=== PATIENT | female | born 1995 | race Caucasian/White ===

== ENCOUNTER 2018-06-18 19:31 | Emergency (ER) | payer OTHER ==
[2018-06-18 20:01] VITALS: BP 127/63
[2018-06-18] MEDS ORDERED: Ibuprofen TAB* 600 MG PO ONE (20:08)
--- NOTE | 2018-06-18 20:17 | UC ---
Throat Pain/Nasal Kwan HPI - HPI Summary HPI Summary: sore throat for 2 days, OGLESBY fever and body aches, petechia and dysphagia - History of Current Complaint Chief Complaint: UCGeneralIllness Stated Complaint: FEVER,ST,BODY ACHES Time Seen by Provider: 06/18/18 20:07 Hx Obtained From: Patient Hx Last Menstrual Period: 06/06/18 Onset/Duration: Sudden Onset, Lasting Days - 2 Severity: Moderate Pain Intensity: 6 Associated Signs & Symptoms: Positive: Dysphagia, Hoarseness, Sinus Discomfort, Fever - Allergies/Home Medications Allergies/Adverse Reactions: Allergies Allergy/AdvReac Type Severity Reaction Status Date / Time No Known Allergies Allergy Verified 06/18/18 20:01 PMH/Surg Hx/FS Hx/Imm Hx Previously Healthy: Yes - Surgical History Surgical History: Yes Surgery Procedure, Year, and Place: Tonsillectomy, ~2001, [place], [place]. [place] 2014 - Family History Known Family History: Positive: None Family History: no cardio-vascular issue in family lineage - Social History Alcohol Use: None Substance Use Type: None Smoking Status (MU): Never Smoked Tobacco - Immunization History Most Recent Influenza Vaccination: Not the 2015/2016 Season Review of Systems All Other Systems Reviewed And Are Negative: Yes Constitutional: Positive: Fever, Fatigue Skin: Positive: Negative Eyes: Positive: Negative ENT: Positive: Sore Throat, Nasal Discharge Respiratory: Positive: Cough Cardiovascular: Positive: Negative Gastrointestinal: Positive: Negative Genitourinary: Positive: Negative Motor: Positive: Negative Neurovascular: Positive: Negative Musculoskeletal: Positive: Myalgia Neurological: Positive: Headache Psychological: Positive: Negative Is Patient Immunocompromised?: No Physical Exam Triage Information Reviewed: Yes Appearance: Well-Nourished, Ill-Appearing, Pain Distress Vital Signs: Initial Vital Signs Temp 102.2 F 06/18/18 19:58 Pulse 112 06/18/18 19:58 Resp 18 06/18/18 19:58 BP 127/63 06/18/18 19:58 Pulse Ox 96 06/18/18 19:58 Vital Signs Reviewed: Yes Eye Exam: Normal ENT: Positive: Pharyngeal erythema - friable, Nasal congestion, Tonsillar swelling, Sinus tenderness Dental Exam: Normal Neck exam: Normal Neck: Positive: Supple, Nontender, No Lymphadenopathy Respiratory Exam: Normal Respiratory: Positive: Chest non-tender, Lungs clear, Normal breath sounds Cardiovascular Exam: Normal Cardiovascular: Positive: No Murmur, Pulses Normal, Tachycardia Abdominal Exam: Normal Musculoskeletal Exam: Normal Musculoskeletal: Positive: Strength Intact, ROM Intact, No Edema Neurological Exam: Normal Neurological: Positive: Alert Psychological Exam: Normal Skin Exam: Normal Throat Pain/Nasal Course/Dx - Course Course Of Treatment: hx obtained, exam performed ,meds reviewed, rapid flu and strep obtained. ibuprofen given for fever - Differential Dx/Diagnosis Differential Diagnosis/HQI/PQRI: Influenza, Laryngitis, Otitis Media, Pharyngitis, Sinusitis, URI Provider Diagnoses: tonsillitis Discharge - Sign-Out/Discharge Documenting (check all that apply): Patient Departure All imaging exams completed and their final reports reviewed: No Studies - Discharge Plan Condition: Stable Disposition: HOME Prescriptions: Amoxicillin PO (*) [Amoxicillin 875 MG (*)] 875 mg PO BID #20 tab Patient Education Materials: Tonsillitis (ED) Forms: *Work Release Referrals: No Primary Care Phys,NOPCP [Primary Care Provider] - Additional Instructions: 1. Get plenty of rest 2. Take medication as prescribed. 3. Increase fluid intake 4. Continue with Advil for pain and fever - Billing Disposition and Condition Condition: STABLE Disposition: Home
[2018-06-18] MEDS ORDERED: Amoxicillin PO (*) 500 MG CAP PO ONE (20:35)
== END 2018-06-18 20:45 | disposition home or self-care (01) ==
LOC: UCCORT 19:31
DX: J03.90 Acute tonsillitis, unspecified (principal); R23.3 Spontaneous ecchymoses
CPT/HCPCS: 87651; 99212; A9270-GY; G0463